=== PATIENT | male | born 1955 | race Caucasian/White ===

== ENCOUNTER 2023-01-14 17:17 | Emergency (ER) | payer MEDICARE, SELFPAY ==
[2023-01-14 17:18] VITALS: BP 157/87; PULSE 84; RESP 18; TEMP 36.1; O2SAT 100; BMI 24.0
--- NOTE | 2023-01-14 17:37 | ED.VIS.BACK ---
HPI History of Present Illness Chief Complaint: Back Informant: patient Onset/Context/Timing Onset: Month(s) Narrative Narrative: Patient presents with 3-month history of back pain. Patient states 3 months ago he fell down a couple steps into a garage. He had abrasions on his face and elbows and landed on his right hip. Since that time he had increasing right low back pain with radiation down his leg. He feels that he is getting muscle atrophy. He did see a chiropractor but has not had improvement with adjustments. He was seen at an urgent care and had x-rays that were reportedly unremarkable. He states he has tried 2 rounds of steroids without improvement. He is in the process of moving from [place] to [place] and just recently switched his insurance. It became effective today so he came here hoping that he get an MRI. He was advised in triage that we cannot perform MRIs in the emergency room. He was just assigned a primary care physician and plans tomorrow to call for an appointment. [facility] Medical History (Updated 01/14/23 @ 18:[address] Lenora Nelson MD) Diabetes Kidney stones Home Medications cyclobenzaprine 10 mg tablet 10 mg PO TID PRN Muscle Spasm #20 TABLETS 01/14/23 [Rx Last Taken Unknown] oxycodone-acetaminophen 5 mg-325 mg tablet (Percocet) 1 tab PO Q8H PRN pain 3 days #10 tabs 01/14/23 [Rx Last Taken Unknown] Allergy/AdvReac Type Severity Reaction Status Date / Time No Known Allergies Allergy Verified 01/14/23 17:20 Social History Smoking Status: Never smoker ROS ROS ED Constitutional Constitutional ED: Denies chills or fever(s) Eyes Eyes: Denies change in vision or discharge from eye(s) ENT ENT ED: Denies discharge from eye(s), rhinorrhea or sore throat Cardiovascular Cardiovascular: Denies chest pain or palpitations Respiratory/Chest Respiratory/Chest: Denies cough or dyspnea Gastrointestinal Gastrointestinal: Denies abdominal pain, nausea or vomiting Genitourinary Genitourinary ED: Denies difficulty urinating or dysuria Musculoskeletal Musculoskeletal: Reports back pain and extremity pain Integumentary Denies Abrasions or rash Neurologic Neurologic: Denies headache(s) or weakness Psychiatric Psychiatric: Denies anxiety or depression Allergic/Immunologic Allergic/Immunologic ED: Denies lip swelling or urticaria EXAM Physical Exam Const Vital Signs: 01/14/23 17:18 Temperature 97.0 F L Temperature Source Temporal Pulse Rate 84 Respiratory Rate 18 Blood Pressure 157/87 H Blood Pressure Mean 110 Pulse Ox 100 Oxygen Delivery Method Room Air Positive well nourished and well developed General Appearance ED: well developed HEENT Reports moist mucous membranes Eyes EOMs intact bilaterally Resp normal respiratory effort and clear to auscultation bilaterally Cardio regular rate and regular rhythm GI soft to palpation and non-tender Back/Spine Back/Spine Narrative: Mild tenderness to palpation in the low lumbar paraspinals. No midline tenderness. Neuro oriented x3 and no sensory deficits noted Neuro Narrative: Strong distal pulses. No strength or sensation deficits appreciated on testing. Psych mental status grossly normal Skin no rashes or lesions noted MDM MDM MDM Narrative Medical decision making narrative: Lumbar spine x-rays obtained to evaluate for malalignment, fracture, bony erosion. 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 No acute fracture or spondylolisthesis. Electronically Signed: Reny Mathew MD at 18:12 EDT Reading Location ID and State: [id number] / [employer] , Service support , Pelvis X-Ray 01/14/23 17:45 IMPRESSION: Multilevel degenerative disease with no acute fracture or subluxation. Electronically Signed: Reny Mathew MD at 18:13 EDT , Treatment and Re-Evaluation Narrative: Pelvis x-ray per my interpretation reveals no acute abnormality. Lumbar spine x-ray per my interpretation reveals some twisting and malalignment indicating spasm. Chronic changes are noted. No fracture. Patient be given a prescription for Percocet and Flexeril. I will avoid anti-inflammatories as he does have a history of diabetes. He has tried 2 rounds of prednisone without improvement so we will avoid this. I will refer him to Dr. Cortez for spine evaluation. Discharge Plan Triage Chief Complaint: Back ED Provider: Lenora Nelson Dx/Rx/DC Orders Clinical Impression: Lumbar radiculopathy, right Instructions: ED Back Pain (Acute or Chronic), ED Sciatica Prescriptions: New oxycodone-acetaminophen [Percocet] 5-325 mg tablet 1 tab PO Q8H PRN (Reason: pain) 3 Days Qty: 10 0RF cyclobenzaprine 10 mg tablet 10 mg PO TID PRN (Reason: Muscle Spasm) Qty: 20 0RF Primary Care Provider: Felix Abdul Referrals: Ronni Cortez, [Med Staff - Active Staff] - As Needed NOT,DEFINED [Non-Staff] - Disposition Disposition: Home, Self Care
--- NOTE | 2023-01-14 17:45 | RAD_ITS ---
STUDY: X-RAY - LUMBAR SPINE REASON FOR EXAM: Male, 67 years old. pain TECHNIQUE: 2 view(s) of the lumbar spine were obtained. COMPARISON: None FINDINGS: Normal lumbar lordosis. There is no substantial scoliosis. There is a normal alignment of the vertebrae. There is multilevel endplate spondylosis of the lumbar vertebrae. This is more severe at L4-5 and L5-S1. There is multi-level degenerative disc disease with multi-level disc space narrowing. There is no demonstrated fracture. Multilevel bilateral facet hypertrophy, more severe from L3 to S1. There is atherosclerotic calcification of the abdominal aorta without a demonstrated aneurysm. 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 No acute fracture or spondylolisthesis. Electronically Signed: Reny Mathew MD at 18:12 EDT ,
--- NOTE | 2023-01-14 17:45 | RAD_ITS ---
STUDY: X-RAY - PELVIS REASON FOR EXAM: Male, 67 years old. pain TECHNIQUE: One view of the pelvis was obtained. COMPARISON: None. FINDINGS: There is a non-specific bowel gas pattern. Normal visualized soft tissue structures. There is narrowing with cortical sclerosis and osteophyte formation of the sacroiliac joint consistent with degenerative osteoarthritic changes. Degenerative arthrosis of the thoracolumbar spine. Normal visualized bilateral superior and inferior pubic rami. Normal pubic symphysis. Normal ischial tuberosities. Normal visualized right femoral head. There is minimal osteoarthritic spur formation of the right acetabular rim. There is mild articular joint space narrowing of the right hip. There are mild osteoarthritic changes of the left femoral head with marginal osteophyte formation. There is mild osteoarthritic spur formation of the left acetabular rim. There is mild articular joint space narrowing of the left hip. RAD/Pelvis 1 or 2 Views IMPRESSION: Multilevel degenerative disease with no acute fracture or subluxation. Electronically Signed: Reny Mathew MD at 18:13 EDT ,
== END 2023-01-14 19:16 | disposition home or self-care (01) ==
PROVIDERS: Emergency Provider Emergency Medicine; PCP Family Medicine; Visit Provider Emergency Medicine
DX: M51.16 Intervertebral disc disorders with radiculopathy, lumbar region (principal)
CPT/HCPCS: 72100; 72170; 99282

== ENCOUNTER → 2024-01-03 | Outpatient (CLI) | payer OTHER, SELFPAY ==
[2024-01-03 12:49] LABS: Absolute Lymphocyte Count 1.87 X10^3/uL (0.83-4.51); Absolute Neutrophil Count 2.3 X10^3/uL (2.0-7.7); Basophil# 0.03 X10^3/uL; Basophil% 0.6 % (0-1); Eosinophil# 0.21 X10^3/uL; Eosinophils% 4.2 % (0-5); Hematocrit 40.9 % (40-54); Hemoglobin 12.9 g/dL (13.0-16.5); Lymphocyte # 1.87 X10^3/ul (0.83-4.51); Lymphocyte % 37.8 % (19-41); Mean Corp Hgb Conc 31.5 g/dL (32-36); Mean Corpuscular Hgb 30.7 pg (27.0-32.0); Mean Corpuscular Volume 97.4 fL (80-94); Mean Platelet Vol. 9.8 fl (6.2-12.0); Monocyte# 0.58 X10^3/uL; Monocyte% 11.7 % (0-10); NRBC Flagged by Analyzer 0 % (0-5); Neutrophil # 2.25 X10^3/uL (2.7-7.7); Neutrophil % 45.5 % (47-70); Platelet Count 232 K/mm3 (150-450); RBC Distribution Width CV 14.9 % (11.6-14.6); RBC Distribution Width SD 53.5 fl (35.1-43.9)
[2024-01-03 12:51] LABS: Color, Urine Yellow (Yellow); Glucose, Dipstick Normal (Normal); Ketone-Dipstick Negative (Negative); Leukocyte Esterase-Dipstick Negative /ul (Negative); Nitrite-Dipstick Negative (Negative); Occult Blood-Urine Negative /ul (Negative); Protein-Dipstick Negative (Negative); Urine Bilirubin Dipstick Negative (Negative); Urine Clarity Clear (Clear); Urine Urobilinogen Normal (Normal)
[2024-01-03 13:08] LABS: AST(SGOT) 27 U/L (15-37); Alanine Aminotransfer ALT/SGPT 34 U/L (16-61); Albumin, Serum 3.5 g/dL (3.2-5.0); Alkaline Phosphatase 38 U/L (45-117); Anion Gap 7 (5-15); BUN 28 mg/dL (7-18); BUN/Creat Ratio 22.2 RATIO (10-20); Calcium,Total 8.7 mg/dL (8.5-10.1); Chloride 106 mmol/L (98-107); Cholesterol 132 mg/dL (200); Creatinine, Serum 1.26 mg/dL (0.70-1.30); EST Glomerular Filtration Rate 60 mL/min (>60); Est Glom Filt Rate - Afr Amer 73 mL/min (>60); Globulin 3.4 g/dL (2.2-4.2); Glucose 167 mg/dL (74-106); High Density Lipoprotein 71 mg/dL; PSA,Total - Annual Screen 2.13 ng/mL (0.00-4.00); Potassium 4.8 mmol/L (3.5-5.1); Protein, Total 6.9 g/dL (6.4-8.2); Sodium Level 139 mmol/L (136-145); Thyroid Stim Hormone (TSH) 0.833 uIU/mL (0.358-3.740); Triglycerides 45 mg/dL; Very Low Density Lipoprotein 9 mg/dL (5-40)
[2024-01-03 13:21] LABS: Microalbumin,Random Urine 15.3 mg/L (NO RANGE EST.)
== END | disposition home or self-care (01) ==
PROVIDERS: Family Medicine
DX: Z00.00 Encounter for general adult medical examination without abnormal findings (principal); E11.9 Type 2 diabetes mellitus without complications; Z12.5 Encounter for screening for malignant neoplasm of prostate
CPT/HCPCS: 36415; 80053; 80061; 81002; 82043; 84153; 84443; 85025; G0103

== ENCOUNTER → 2024-01-17 | Outpatient (CLI) | payer OTHER, SELFPAY ==
[2024-01-17 12:50] LABS: Vitamin B12 672 pg/mL (211-911)
[2024-01-17 13:30] LABS: Ferritin 50 ng/mL (26-388); Iron 67 ug/dL (65-175); Iron Binding Capacity,Total 430 ug/dL (250-450); PERCENT IRON SATURATION 15.6 % (15.0-55.0)
== END | disposition home or self-care (01) ==
LOC: VSLAB 11:04
PROVIDERS: Visit Provider Nurse Practitioner
DX: F32.9 Major depressive disorder, single episode, unspecified (principal); D64.9 Anemia, unspecified
CPT/HCPCS: 36415; 82607; 82728; 82746; 83540; 83550

== ENCOUNTER 2024-03-03 16:57 | Emergency (ER) | payer OTHER, SELFPAY ==
[2024-03-03 16:57] VITALS: BP 154/86; PULSE 76; RESP 19; TEMP 36; O2SAT 100; BMI 26.6
--- NOTE | 2024-03-03 17:16 | EDS_ITS ---
<Statement entered by Efraín Nieto DO - 03/03/24 21:49> Patient was seen and examined with physician assistant food service manager Erma All components of the history and physical confirmed and agreed. History of present illness and physical exam: Patient is a 68-year-old male with a past medical history of diabetes who presents to the emergency department with a chief complaint of hyperglycemia. Patient states that for the past 3 days he has had nasal congestion, diffuse bodyaches, cough and headache. He states that he tested himself for COVID and noted that he was positive today. He states that he noted today that his blood glucose was increasing and notes that this was around 350. He states that he gave himself 30 units of long-acting insulin and checked it 15 minutes later and is noted that the glucose was noted be 495 prompting him to come here for further evaluation management. Patient otherwise outside of his viral symptoms feels his normal self. Review of systems: Constitutional: Complains of chills denies fevers, Eyes: Denies change in vision double vision blurry vision Cardiovascular: Denies chest pain or palpitations Respiratory: Complains of cough denies any sputum production Abdomen: Denies abdominal pain nausea vomit diarrhea : Denies any urinary symptoms Neurological: Denies any numbness, weakness, tingling Musculoskeletal: Denies back pain Skin: Denies rashes or lesions Physical exam: Agree with above MDM Patient is a 68-year-old male who presented to the emergency department the chief complaint of hyperglycemia. Patient will have a workup performed here on the differential diagnose includes but not limited to DKA, COVID-19, pneumonia, ACS. Once workup is obtained reviewed he will be reevaluated. Patient CBC reviewed and was largely unremarkable no evidence of leukocytosis white blood count normal at 8.1, hemoglobin stable 14, platelet count normal at 244. Patient's sodium normal at 137, potassium normal 4.5, creatinine is 1.39. Patient's glucose was noted to be elevated to 395, however anion gap was normal at 8. Patient's urinalysis did not reveal any evidence of infection and there were no ketones noted. Acetone level was negative. Patient's chest x-ray was reviewed by myself and by radiology which showed no evidence of acute cardiopulmonary processes. Patient's glucose was rechecked and was noted to be 255. Discussed results with the patient he would like to go home at this point time he was encouraged to keep a close eye on his glucose and return with worsening symptoms or any concerns. He is advised to follow-up with your primary care physician outpatient setting. He is agreeable with this plan all question concerns answered he is discharged home in stable condition. Final impression: COVID-19 Hyperglycemia Disposition: Patient will be discharged home in stable condition Supervising attending attestation: Efraín RAIN History of Present Illness Chief Complaint: Hyperglycemia Narrative Narrative: Patient presenting today due to hyperglycemia that started about an hour and a half prior to arrival. He reports that over the past 3 days he has had nasal congestion, cough, and headache. He tested himself for COVID today and was positive. He reports that he did just recently have a COVID infection about 6 weeks ago which he recovered from. When he checked his glucose this afternoon it was 350, he then gave himself 30 units of long-acting insulin, he checked it 15 minutes later and his glucose was 495 prompting him to come in. He has a PMH of T2DM. He denies fevers, chills, shortness of breath, chest pain, abdominal pain, nausea, and vomiting. [facility] Medical History Diabetes Kidney stones Home Medications ?Medication ?Instructions ?Recorded ?Last Taken ?Type cyclobenzaprine 10 mg tablet 10 mg PO TID PRN Muscle Spasm #20 01/14/23 Unknown Rx TABLETS oxycodone-acetaminophen 5 mg-325 1 tab PO Q8H PRN pain 3 days #10 01/14/23 Unknown Rx mg tablet (Percocet) tabs Allergy/AdvReac Type Severity Reaction Status Date / Time No Known Allergies Allergy Verified 01/14/23 17:20 Social History Smoking Status: Never smoker ROS ROS ED Constitutional Constitutional ED: Denies chills or fever(s) Cardiovascular Cardiovascular: Denies chest pain Respiratory/Chest Respiratory/Chest: Reports cough; Denies dyspnea, dyspnea on exertion or wheezing Gastrointestinal Gastrointestinal: Denies abdominal pain, nausea or vomiting Genitourinary Genitourinary ED: Denies dysuria, hematuria or urinary urgency Musculoskeletal Musculoskeletal: Denies arthralgias or myalgias Integumentary Denies rash Neurologic Neurologic: Denies weakness EXAM Physical Exam Const Vital Signs: 03/03/24 16:57 03/03/24 17:14 03/03/24 18:57 Temperature 96.8 F L Temperature Source Temporal Pulse Rate 76 84 Respiratory Rate 19 H 18 Respiratory Effort Normal Non-Labored Respiratory Depth Respiratory Pattern Normal Blood Pressure 154/86 H 148/92 H Blood Pressure Mean 108 110 Pulse Ox 100 98 Oxygen Delivery Method Room Air 03/03/24 19:37 03/03/24 19:42 Temperature 97.8 F Temperature Source Pulse Rate 84 Respiratory Rate 18 Respiratory Effort Normal Non-Labored Respiratory Depth Normal Respiratory Pattern Normal Blood Pressure 148/92 H Blood Pressure Mean 110 Pulse Ox 98 Oxygen Delivery Method Positive well nourished, well developed and no apparent distress General Appearance ED: well developed HEENT Reports normocephalic and head/scalp atraumatic Mouth ED: Yes moist mucous membranes normal Eyes PERRL and EOMs intact bilaterally Neck full ROM and supple Chest Wall inspection of chest normal Resp normal respiratory effort and clear to auscultation bilaterally Cardio regular rate and regular rhythm GI soft to palpation, non-tender, non-distended and no masses Back/Spine normal ROM and normal to inspection Extremity normal to inspection and full ROM Neuro oriented x3, CN's II-XII intact bilaterally, moves all extremities, no focal motor deficits and no sensory deficits noted Sensorium / Orientation: awake and alert Psych mental status grossly normal and thought process normal Skin no rashes or lesions noted and no wounds MDM MDM MDM Narrative Medical decision making narrative: Patient presenting today due to hyperglycemia. Labs will be obtained to rule out DKA. He is nontoxic-appearing and in no acute distress. He is currently COVID-positive. His oxygen saturation is 100% on room air, he denies feeling short of breath. He had COVID about 6 weeks ago and recovered well. Labs were obtained, CBC is unremarkable, he has a creatinine of 1.39, BUN of 22, glucose 395, urine glucose 1000, otherwise no UTI. Serum acetone is negative, he has normal anion gap. Chest x-ray is negative for infiltrate. He was given IV fluids. Repeat glucose is 255. I did encourage him to check his glucose again prior to going to sleep tonight since he took a bigger dose of his insulin than he normally does. Return instructions were discussed and patient discharged home in stable condition. Lab Data Attestation: I reviewed the patient's lab results. Labs: Laboratory Results - last 24 hr 03/03/24 03/03/24 03/03/24 17:29 17:50 19:35 WBC 8.1 RBC 4.50 L Hgb 14.0 Hct 42.3 MCV 94.0 MCH 31.1 MCHC 33.1 RDW Std Deviation 45.9 H RDW Coeff of Christy 13.3 Plt Count 244 MPV 10.3 Immature Gran % (Auto) 0.200 Neut % (Auto) 62.3 Lymph % (Auto) 22.9 [place] % (Auto) 8.4 Eos % (Auto) 5.7 H Baso % (Auto) 0.5 Absolute Neuts (auto) 5.0 Absolute Lymphs (auto) 1.85 Nucleated RBC % 0 Sodium 137 Potassium 4.5 Chloride 104 Carbon Dioxide 26.0 Anion Gap 8 BUN 22 H Creatinine 1.39 H Estim Creat Clear Calc 51.79 Est GFR (MDRD) Af Amer 65 Est GFR (MDRD) Non-Af 54 L BUN/Creatinine Ratio 15.8 Glucose 395 H Calcium 9.0 Urine Color Yellow Urine Clarity Clear Urine pH 6.0 Ur Specific [place] 1.015 Urine Protein Negative Urine Glucose (UA) 1000 H Urine Ketones Negative Urine Occult Blood Negative Urine Nitrite Negative Urine Bilirubin Negative Urine Urobilinogen Normal Ur Leukocyte Esterase Negative Urine RBC 0 SEEN Urine WBC 0 SEEN Ur Squamous Epith Cells 0 SEEN Urine Bacteria 0 SEEN Urine Mucus 0 SEEN Acetone Level NEGATIVE POC Glucose 255 H Radiography X-Ray: Read by ED Physician Diagnostic Testing: Clinical Impression(s) from Imaging Studies Chest X-Ray 03/03/24 17:50 IMPRESSION: No radiographic evidence of acute cardiopulmonary disease. Electronically Signed: Nancy Mcgovern MD at 18:44 EST , Discharge Plan Triage Chief Complaint: Hyperglycemia Other Complaint: Cold Sx ED Midlevel Provider: Carlyn Felix ED Provider: Efraín Nieto Dx/Rx/DC Orders Clinical Impression: Hyperglycemia, COVID-19 Instructions: ED Diabetic Hyperglycemia Prescriptions: No Action oxycodone-acetaminophen [Percocet] 5-325 mg tablet 1 tab PO Q8H PRN (Reason: pain) 3 Days Qty: 10 0RF cyclobenzaprine 10 mg tablet 10 mg PO TID PRN (Reason: Muscle Spasm) Qty: 20 0RF Primary Care Provider: Felix Sierra Referrals: Airam Barahona, PHARMACIST-C [[facility]] - Activity Restrictions/Additional Instructions: Follow-up with your PCP and return for any worsening of your symptoms. Print Language: Tunisian Disposition Disposition: Home, Self Care Discharge Date/Time: 03/03/24 19:42
[2024-03-03] MEDS: 0.9% Normal Saline (1000mL) 1,000 ML 999 ML IV (17:48)
[2024-03-03 17:50] LABS: Absolute Lymphocyte Count 1.85 X10^3/uL (0.83-4.51); Basophil# 0.04 X10^3/uL; Basophil% 0.5 % (0-1); Eosinophil# 0.46 X10^3/uL; Eosinophils% 5.7 % (0-5); Hematocrit 42.3 % (40-54); Lymphocyte # 1.85 X10^3/ul (0.83-4.51); Lymphocyte % 22.9 % (19-41); Mean Corp Hgb Conc 33.1 g/dL (32-36); Mean Corpuscular Hgb 31.1 pg (27.0-32.0); Mean Platelet Vol. 10.3 fl (6.2-12.0); Monocyte# 0.68 X10^3/uL; Monocyte% 8.4 % (0-10); NRBC Flagged by Analyzer 0 % (0-5); Neutrophil # 5.03 X10^3/uL (2.7-7.7); Neutrophil % 62.3 % (47-70); Platelet Count 244 K/mm3 (150-450); RBC Distribution Width CV 13.3 % (11.6-14.6); RBC Distribution Width SD 45.9 fl (35.1-43.9); White Blood Count 8.1 K/mm3 (4.4-11.0)
--- NOTE | 2024-03-03 17:50 | RAD_ITS ---
EXAM: XR CHEST, 2 VIEWS CLINICAL INDICATION: cough, covid + TECHNIQUE: Frontal and lateral views of the chest. COMPARISON: No relevant prior studies available. FINDINGS: LUNGS AND PLEURAL SPACES: Unremarkable. No consolidation or edema. No pneumothorax. No effusion. HEART: Unremarkable. Cardiac silhouette not enlarged. MEDIASTINUM: Central airways and mediastinal contour are unremarkable. BONES/JOINTS: Unremarkable with the exception of mild anterior thoracic spondylosis seen on the lateral view. No acute fracture. SOFT TISSUES: Unremarkable. RAD/Chest PA and Lateral IMPRESSION: No radiographic evidence of acute cardiopulmonary disease. Electronically Signed: Nancy Mcgovern MD at 18:44 EST ,
[2024-03-03 17:55] LABS: Bacteria 0 SEEN /hpf (None Seen); Mucous, Urine 0 SEEN /hpf (<or=2+); Red Blood Cells-Urine 0 SEEN /hpf (0-5); Squamous Epithelial Cells - UA 0 SEEN /hpf (0-5); White Blood Cells 0 SEEN /hpf (0-5)
[2024-03-03 18:00] LABS: Color, Urine Yellow (Yellow); Glucose, Dipstick 1000 mg/dl (Normal); Ketone-Dipstick Negative (Negative); Leukocyte Esterase-Dipstick Negative /ul (Negative); Nitrite-Dipstick Negative (Negative); Occult Blood-Urine Negative /ul (Negative); Protein-Dipstick Negative (Negative); Specific Gravity, Urine 1.015 (1.002-1.030); Urine Bilirubin Dipstick Negative (Negative); Urine Clarity Clear (Clear); Urine Urobilinogen Normal (Normal)
[2024-03-03 18:10] LABS: Anion Gap 8 (5-15); BUN 22 mg/dL (7-18); BUN/Creat Ratio 15.8 RATIO (10-20); Chloride 104 mmol/L (98-107); Creatinine, Serum 1.39 mg/dL (0.70-1.30); EST Glomerular Filtration Rate 54 mL/min (>60); Est Glom Filt Rate - Afr Amer 65 mL/min (>60); Estimated Creatinine Clearance 51.79 ml/min; Glucose 395 mg/dL (74-106); Potassium 4.5 mmol/L (3.5-5.1); Sodium Level 137 mmol/L (136-145)
[2024-03-03 18:57] VITALS: BP 148/92; PULSE 84; RESP 18; O2SAT 98
[2024-03-03 19:42] VITALS: BP 148/92; PULSE 84; RESP 18; TEMP 36.6; O2SAT 98
[2024-03-03 19:52] LABS: Bedside Glucose 255 mg/dL (74-106)
== END 2024-03-03 19:42 | disposition home or self-care (01) ==
PROVIDERS: Physician Assistant; Emergency Provider Emergency Medicine; PCP Nurse Practitioner Family; Visit Provider Emergency Medicine
DX: U07.1 COVID-19 (principal); E11.65 Type 2 diabetes mellitus with hyperglycemia; Z79.4 Long term (current) use of insulin
CPT/HCPCS: 71046; 80048; 81001; 82009; 82962; 85025; 96360; 99283; J7030; A4216

== ENCOUNTER → 2024-06-25 | Outpatient (CLI) | payer MEDICARE, SELFPAY ==
[2024-06-25 12:39] LABS: Absolute Lymphocyte Count 2.02 X10^3/uL (0.83-4.51); Absolute Neutrophil Count 4.2 X10^3/uL (2.0-7.7); Basophil# 0.03 X10^3/uL; Basophil% 0.4 % (0-1); Eosinophil# 0.23 X10^3/uL; Eosinophils% 3.2 % (0-5); Hematocrit 38.7 % (40-54); Hemoglobin 12.5 g/dL (13.0-16.5); Lymphocyte # 2.02 X10^3/ul (0.83-4.51); Lymphocyte % 27.8 % (19-41); Mean Corp Hgb Conc 32.3 g/dL (32-36); Mean Corpuscular Hgb 30.8 pg (27.0-32.0); Mean Corpuscular Volume 95.3 fL (80-94); Mean Platelet Vol. 9.8 fl (6.2-12.0); Monocyte# 0.74 X10^3/uL; Monocyte% 10.2 % (0-10); NRBC Flagged by Analyzer 0 % (0-5); Neutrophil # 4.23 X10^3/uL (2.7-7.7); Neutrophil % 58.3 % (47-70); Platelet Count 217 K/mm3 (150-450); RBC Distribution Width CV 14.4 % (11.6-14.6); RBC Distribution Width SD 50.3 fl (35.1-43.9); Red Blood Count 4.06 M/mm3 (4.6-6.2); White Blood Count 7.3 K/mm3 (4.4-11.0)
[2024-06-25 13:06] LABS: Cholesterol 139 mg/dL (<=200); High Density Lipoprotein 67 mg/dL; Low Density Lipoprotein Calc. 60 mg/dL; Triglycerides 62 mg/dL; Very Low Density Lipoprotein 12 mg/dL (5-40); cholesterol:hdl ratio screen 2.08
[2024-06-25 13:11] LABS: ALB/GLOB Ratio 1.7 RATIO (0.9-2.4); AST(SGOT) 30 U/L (<=37); Alanine Aminotransfer ALT/SGPT 25 U/L (<=46); Albumin, Serum 4.2 g/dL (3.4-4.8); Alkaline Phosphatase 37 U/L (40-129); Anion Gap 12 (5-15); BUN 26 mg/dL (4-19); BUN/Creat Ratio 21.6 RATIO (10-20); Calcium,Total 9.2 mg/dL (7.6-11.0); Chloride 102 mmol/L (98-108); Creatinine, Serum 1.19 mg/dL (0.70-1.20); EST Glomerular Filtration Rate 66 (>60); Globulin 2.5 g/dL (2.2-4.2); Glucose 231 mg/dL (70-99); Potassium 4.4 mmol/L (3.3-5.1); Protein, Total 6.7 g/dL (5.9-8.4); Sodium Level 137 mmol/L (133-145); Total Bilirubin < 0.15 mg/dL (0.00-1.30)
[2024-06-25 14:18] LABS: Microalbumin,Random Urine 21.2 mg/L (NO RANGE EST.)
== END | disposition home or self-care (01) ==
LOC: VSLAB 10:52
PROVIDERS: PCP Nurse Practitioner Family
DX: E11.9 Type 2 diabetes mellitus without complications (principal)
CPT/HCPCS: 36415; 80053; 80061; 82043; 84443; 85025